=== PATIENT | male | born 1955 | race Caucasian/White ===

== ENCOUNTER 2021-12-06 08:21 | Day surgery (SDC) | payer OTHER, SELFPAY ==
[~2021-12-06] VITALS: Ht 172.7 cm; Wt 68.0 kg
[2021-12-06] MEDS ORDERED: diphenhydrAMINE 50 MG/ML VIAL ONE (09:50)
[2021-12-06] MEDS ORDERED: LIDOCAINE 2% 100 MG/5 ML UJET TP ONE (09:51)
[2021-12-06] MEDS ORDERED: fentaNYL citrate 0.05 MG/ML VIAL ONE (09:51)
[2021-12-06] MEDS ORDERED: MIDAZOLAM 5 MG/5 ML VIAL ONE ×2 (09:51→09:53)
[2021-12-06] MEDS ORDERED: MIDAZOLAM 2 MG/2 ML VIAL IVP ONE (13:05)
[2021-12-06] MEDS ORDERED: fentaNYL citrate 0.05 MG/ML VIAL IVP ONE (13:05)
== END 2021-12-06 11:41 | disposition home or self-care (01) ==
LOC: MDS 08:21 → MMU 08:22 → MDS 11:41
PROVIDERS: ATTEND Internal Medicine Gastroenterology
DX: K62.5 Hemorrhage of anus and rectum (principal); K59.00 Constipation, unspecified; E78.5 Hyperlipidemia, unspecified; Z85.46 Personal history of malignant neoplasm of prostate; Z79.899 Other long term (current) drug therapy; Z20.822 Contact with and (suspected) exposure to COVID-19
CPT/HCPCS: 45378; 87426; J2250; J3010; J1200